=== PATIENT | female | born 1950 | race African-American/Black ===

== ENCOUNTER 2023-07-05 13:40 | Outpatient (AMB) | payer MEDICARE, MEDICAID, SELFPAY ==
--- NOTE | 2023-07-05 13:50 | HO.NEPHOV_ITS ---
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 She has diabetes. Her blood sugar is very fair. She is known to have iliac artery aneurysm. She denies any coronary artery disease, CVA, carotid stenosis, congestive heart failure, peripheral arterial symptoms. She is on angiotensin receptor dione. She denies any orthostatic symptoms. She has no history of hematuria or nephrolithiasis. She does not take any ex cessive nonsteroidal anti-inflammatories. She has been on PPI for a long time. She denies any epistaxis, recurrent sinusitis, hemoptysis, pedal edema. She maintains good hydration. She has no family history of any ESRD or renal transplantation. 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 with negative chest x-ray Gastroesophageal reflux disease without esophagitis Hypercholesteremia Essential (primary) hypertension Sensorineural hearing loss Surgical History (Updated 07/05/23 @ 13:55 by Emily Pop MA) History of hysterectomy Family History (Updated 07/05/23 @ 13:55 by Emily Pop MA) Sister Cancer Diabetes Social History (Updated 07/05/23 @ 13:56 by Emily Pop MA) Alcohol intake: never Patient Tobacco Use Status: Never used Tobacco Physical Exam Vital Signs: Last Vital Signs Pulse 55 07/05/23 13:51 BP 132/80 07/05/23 13:51 Pulse Ox 97 07/05/23 13:51 Oxygen Delivery Method Room Air 07/05/23 13:51 BMI result Body Mass Index 30.3 Const General: comfortable and no acute distress Orientation/consciousness: patient oriented x3 HEENT Head: Yes normocephalic Mouth: Normal oral and palatal mucosa present Eyes EOM: EOMs intact bilaterally Neck Neck: Yes supple Resp Auscultation: clear to auscultation bilaterally Cardio Jugular venous distension: no JVD Rate: regular rate GI Palpation (GI): Soft to palpation Auscultation: normal bowel sounds General: Yes no CVA tenderness Back/Spine/Pelvis Back: no CVA tenderness Skin General skin exam: no rashes or lesions noted Neuro General: patient oriented x3 and moves all extremities Extrem General: Yes no pedal edema Results Reviewed Nephrology Results: No Data to Display Assessment & Plan Assessment & Plan (1) CKD (chronic kidney disease) stage 3, GFR 30-59 ml/min: Code(s): N18.30 - Chronic kidney disease, stage 3 unspecified Category: Medical Qualifiers: Chronic kidney disease stage 3 subtype: stage 3a (GFR 45-59) Qualified Code(s): N18.31 - Chronic kidney disease, stage 3a (2) Hypertension: Code(s): I10 - Essential (primary) hypertension Category: Medical Qualifiers: Hypertension type: renovascular hypertension Qualified Code(s): I15.0 - Renovascular hypertension Plan Sally has CKD most likely due to vascular disease. She has history of iliac artery aneurysm. She has no history of retinopathy or proteinuria. She is on angiotensin receptor dione. Her blood pressure is currently well controlled on losartan, metoprolol and diltiazem. I have ordered Doppler of her renal arteries. Her blood sugars are fair. Her volume status is optimal. She avoids nonsteroidal anti-inflammatory medications. She is on statins. I did not make any medication changes today but further management is pending evolving data. I had the opportunity to answer all her and her daughter's questions. Follow-up appointment given. Orders: Orders Complete Blood Count Auto Diff 07/05/23 I10 - Essential (primary) hypertension, N18.30 - Chronic kidney disease, stage 3 unspecified Immunofixation Pnl, Serum 07/05/23 I10 - Essential (primary) hypertension, N18.30 - Chronic kidney disease, stage 3 unspecified US renal BI 07/05/23 I10 - Essential (primary) hypertension, N18.30 - Chronic kidney disease, stage 3 unspecified US renal doppler 07/05/23 I10 - Essential (primary) hypertension, N18.30 - Chronic kidney disease, stage 3 unspecified Calcium 07/05/23 I10 - Essential (primary) hypertension, N18.30 - Chronic kidney disease, stage 3 unspecified Electrolytes 07/05/23 I10 - Essential (primary) hypertension, N18.30 - Chronic kidney disease, stage 3 unspecified Blood Urea Nitrogen 07/05/23 I10 - Essential (primary) hypertension, N18.30 - Chronic kidney disease, stage 3 unspecified Creatinine 07/05/23 I10 - Essential (primary) hypertension, N18.30 - Chronic kidney disease, stage 3 unspecified Protein Creatinine Ratio, Ur 07/05/23 I10 - Essential (primary) hypertension, N18.30 - Chronic kidney disease, stage 3 unspecified Coding Level of Care Code New Pt Level 4 (21877) Diagnoses Stage 3a chronic kidney disease N18.31 Chronic kidney disease stage 3 subtype: stage 3a (GFR 45-59) Renovascular hypertension I15.0 Hypertension type: renovascular hypertension
[2023-07-05 13:51] VITALS: BP 132/80; PULSE 55; O2SAT 97; BMI 30.3
== END 2023-07-05 14:26 | disposition home or self-care (01) ==
PROVIDERS: PCP Internal Medicine; Visit Provider Internal Medicine Nephrology
DX: N18.31 Chronic kidney disease, stage 3a (principal); I15.0 Renovascular hypertension
CPT/HCPCS: 99204

== ENCOUNTER → 2023-07-05 13:40 | Outpatient (BNVA) | payer MEDICARE, MEDICAID, SELFPAY | PROVIDERS: PCP Internal Medicine; Visit Provider Internal Medicine Nephrology | DX: I15.0 Renovascular hypertension (principal); N18.31 Chronic kidney disease, stage 3a | CPT/HCPCS: 99202 ==

== ENCOUNTER 2023-09-11 08:45 | Outpatient (REF) | payer MEDICARE, MEDICAID, SELFPAY ==
[2023-09-11 17:26] LABS: MANUAL DIFF FLAG NO
[2023-09-11 17:43] LABS: Basophils Percent Auto 0.6 % (0-2); Eosinophils Absolute Auto 0.1 X10*3/uL (0.0-0.4); Eosinophils Percent Auto 3.6 % (0-4); Hematocrit 35.1 % (37.0-47.0); Hemoglobin 11.3 g/dl (12.0-16.0); Imm Gran Abs Auto 0.01 X10*3/uL (0.00-0.03); Imm Gran Pct Auto 0.3 % (0.0-0.4); Lymphocytes Absolute Auto 1.7 X10*3/uL (1.2-4.9); Mean Corpuscular HGB Conc 32.2 g/dl (31.0-35.0); Mean Corpuscular Volume 86.9 fL (80.0-98.0); Mean Platelet Volume 11.1 fL (9.4-12.3); Monocytes Absolute Auto 0.5 X10*3/uL (0.1-1.2); Monocytes Percent Auto 12.5 % (2-11); Neutrophils Absolute Auto 1.3 x10*3/uL (2.0-8.3); Platelet Count 167 X10*3/uL (160-400); Red Blood Count 4.04 X10*6/uL (4.20-5.50); Red Cell Distribution Width 15.2 % (11.0-16.0); White Blood Count 3.6 X10*3/uL (4.8-10.8)
[2023-09-11 17:45] LABS: Anion Gap 11 (12-20); Blood Urea Nitrogen 27 mg/dL (9-16); Calcium 9.7 mg/dL (8.4-10.2); Carbon Dioxide 27 mmol/L (22-29); Chloride 109 mmol/L (96-108); Estimated Glomerular Filt Rate 35; Potassium 4.3 mmol/L (3.3-5.1); Sodium 143 mmol/L (135-145)
[2023-09-11 18:08] LABS: Creatinine Urine 236.98 mg/dL; Protein/Creatinine Ratio, Ur 0.09 (<0.2); Total Protein Urine Random 22 mg/dL (<12)
[2023-09-17 08:23] LABS: IgA 266 mg/dL (70-320); IgG 1533 mg/dL (600-1540); IgM 66 mg/dL (50-300)
== END 2023-09-11 08:46 | disposition home or self-care (01) ==
LOC: HO.HKASLDS 08:45
PROVIDERS: Visit Provider Internal Medicine Nephrology
DX: I12.9 Hypertensive chronic kidney disease with stage 1 through stage 4 chronic kidney disease, or unspecified chronic kidney disease (principal); N18.30 Chronic kidney disease, stage 3 unspecified
CPT/HCPCS: 36415; 80051; 82310; 82565; 82570; 82784; 84156; 84520; 85025; 86334

== ENCOUNTER 2023-09-25 08:48 | Outpatient (REF) | payer MEDICARE, MEDICAID, SELFPAY ==
--- NOTE | ~2023-09-25 | US_ITS ---
EXAMINATION: ULTRASOUND RENAL WITH DOPPLER CLINICAL INFORMATION: Hypertension COMPARISON: None. TECHNIQUE: Real-time grayscale, color Doppler, and duplex Doppler evaluation of the kidneys and renal vasculature was performed. FINDINGS: RENAL MEASUREMENTS: Right: 10.6 x 3.5 x 6.2 cm (Sag x AP x TV) Left: 9.7 x 4.3 x 5.2 cm (Sag x AP x TV) The renal parenchyma appears normal. No hydronephrosis or nephrolithiasis. DOPPLER INTERROGATION: AORTA: Mid aorta: 57 cm/sec RIGHT MAIN RENAL ARTERY: Proximal: 167 cm/sec Mid: 67 cm/sec Distal: 37 cm/sec LEFT MAIN RENAL ARTERY: Proximal: 82 cm/sec Mid: Not seen Distal: 69 cm/sec RENAL-AORTIC RATIO (RAR): Right: 2.9 Left: 1.4 SEGMENTAL RESISTIVE INDICES: Right: 0.63-0.68 Left: 0.63-0.72 RENAL VEINS: Right: Patent with normal waveform. Left: Patent with normal waveform. US/US renal doppler IMPRESSION: The mid segment of the left main renal artery is not visualized. Otherwise no evidence of hemodynamically significant renal artery stenosis.
--- NOTE | ~2023-09-25 | US_ITS ---
EXAMINATION: ULTRASOUND RENAL WITH DOPPLER CLINICAL INFORMATION: Hypertension COMPARISON: None. TECHNIQUE: Real-time grayscale, color Doppler, and duplex Doppler evaluation of the kidneys and renal vasculature was performed. FINDINGS: RENAL MEASUREMENTS: Right: 10.6 x 3.5 x 6.2 cm (Sag x AP x TV) Left: 9.7 x 4.3 x 5.2 cm (Sag x AP x TV) The renal parenchyma appears normal. No hydronephrosis or nephrolithiasis. DOPPLER INTERROGATION: AORTA: Mid aorta: 57 cm/sec RIGHT MAIN RENAL ARTERY: Proximal: 167 cm/sec Mid: 67 cm/sec Distal: 37 cm/sec LEFT MAIN RENAL ARTERY: Proximal: 82 cm/sec Mid: Not seen Distal: 69 cm/sec RENAL-AORTIC RATIO (RAR): Right: 2.9 Left: 1.4 SEGMENTAL RESISTIVE INDICES: Right: 0.63-0.68 Left: 0.63-0.72 RENAL VEINS: Right: Patent with normal waveform. Left: Patent with normal waveform. US/US renal BI IMPRESSION: The mid segment of the left main renal artery is not visualized. Otherwise no evidence of hemodynamically significant renal artery stenosis.
== END 2023-09-25 08:49 | disposition home or self-care (01) ==
LOC: HO.US 08:48
PROVIDERS: PCP Internal Medicine; Visit Provider Internal Medicine Nephrology
DX: I10 Essential (primary) hypertension (principal); N18.30 Chronic kidney disease, stage 3 unspecified
CPT/HCPCS: 76775; 93975

== ENCOUNTER 2024-01-03 09:07 | Outpatient (REF) | payer MEDICARE, MEDICAID, SELFPAY ==
[2024-01-03 18:03] LABS: Anion Gap 12 (12-20); Blood Urea Nitrogen 25 mg/dL (9-16); Carbon Dioxide 27 mmol/L (22-29); Chloride 109 mmol/L (96-108); Estimated Glomerular Filt Rate 47; Potassium 4.5 mmol/L (3.3-5.1); Sodium 143 mmol/L (135-145)
[2024-01-03 18:21] LABS: Creatinine Urine 151.46 mg/dL; Protein/Creatinine Ratio, Ur 0.07 (<0.2); Total Protein Urine Random 10 mg/dL (<12)
== END 2024-01-03 09:08 | disposition home or self-care (01) ==
LOC: HO.HKASLDS 09:07
PROVIDERS: Visit Provider Internal Medicine Nephrology
DX: N18.31 Chronic kidney disease, stage 3a (principal); I15.0 Renovascular hypertension
CPT/HCPCS: 36415; 80051; 82565; 82570; 84156; 84520

== ENCOUNTER 2024-01-08 09:55 | Outpatient (AMB) | payer MEDICARE, MEDICAID, SELFPAY ==
--- NOTE | 2024-01-08 09:59 | HO.NEPHOV ---
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 She has diabetes. Her blood sugar is very fair. She is known to have iliac artery aneurysm. She denies any coronary artery disease, CVA, carotid stenosis, congestive heart failure, peripheral arterial symptoms. She is on angiotensin receptor dione. She denies any orthostatic symptoms. She has no history of hematuria or nephrolithiasis. She does not take any excessive nonsteroidal anti-inflammatories. She has been on PPI for a long time. She denies any epistaxis, recurrent sinusitis, hemoptysis, pedal edema. She maintains good hydration. 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 chest x-ray Gastroesophageal reflux disease without esophagitis Hypercholesteremia Essential (primary) hypertension Sensorineural hearing loss Surgical History History of hysterectomy Family History Sister Cancer Diabetes Social History Alcohol intake: never Patient Tobacco Use Status: Never used Tobacco Review of Systems Const All systems reviewed & are unremarkable except as noted in HPI and below Physical Exam Vital Signs: Last Vital Signs BP 122/70 01/08/24 10:00 BMI result Body Mass Index 29.7 Const General: comfortable and no acute distress Orientation/consciousness: patient oriented x3 HEENT Head: Yes normocephalic Mouth: Normal oral and palatal mucosa present Eyes EOM: EOMs intact bilaterally Neck Neck: Yes supple Resp Auscultation: clear to auscultation bilaterally Cardio Jugular venous distension: no JVD Rate: regular rate GI Palpation (GI): Soft to palpation Auscultation: normal bowel sounds General: Yes no CVA tenderness Back/Spine/Pelvis Back: no CVA tenderness Skin General skin exam: no rashes or lesions noted Neuro General: patient oriented x3 and moves all extremities Extrem General: Yes no pedal edema Results Reviewed Nephrology Results: Hgb 11.3 g/dl (12.0-16.0) L 09/11/23 WBC 3.6 X10*3/uL (4.8-10.8) L 09/11/23 Plt Count 167 X10*3/uL (160-400) 09/11/23 Sodium 143 mmol/L (135-145) 01/03/24 Potassium 4.5 mmol/L (3.3-5.1) 01/03/24 Chloride 109 mmol/L (96-108) H 01/03/24 Carbon Dioxide 27 mmol/L (22-29) 01/03/24 BUN 25 mg/dL (9-16) H 01/03/24 Creatinine 1.13 mg/dL (0.5-1.4) 01/03/24 Calcium 9.7 mg/dL (8.4-10.2) 09/11/23 Urine Creatinine 151.46 mg/dL 01/03/24 Protein/Creatinin Ratio 0.07 (<0.2) 01/03/24 Renal US 09/25/23 Assessment & Plan Assessment & Plan (1) CKD (chronic kidney disease) stage 3, GFR 30-59 ml/min: Code(s): N18.30 - Chronic kidney disease, stage 3 unspecified Category: Medical Qualifiers: Chronic kidney disease stage 3 subtype: stage 3a (GFR 45-59) Qualified Code(s): N18.31 - Chronic kidney disease, stage 3a (2) Hypertension: Code(s): I10 - Essential (primary) hypertension Category: Medical Qualifiers: Hypertension type: renovascular hypertension Qualified Code(s): I15.0 - Renovascular hypertension Plan Sally has CKD most likely due to vascular disease. She has history of iliac artery aneurysm. She has no history of retinopathy or proteinuria. She is on angiotensin receptor dione. Her blood pressure is currently well controlled on losartan, metoprolol and diltiazem. Doppler of her renal arteries did not show any significant SONY. Her blood sugars are fair. Her volume status is optimal. She avoids nonsteroidal anti-inflammatory medications. She is on statins. I did not make any medication changes today . We can consider switching her from Actos to Jardiance given her CKD. Follow-up appointment given. Orders: Orders Electrolytes 6 Months I15.0 - Renovascular hypertension, N18.31 - Chronic kidney disease, stage 3a Creatinine 6 Months I15.0 - Renovascular hypertension, N18.31 - Chronic kidney disease, stage 3a Blood Urea Nitrogen 6 Months I15.0 - Renovascular hypertension, N18.31 - Chronic kidney disease, stage 3a Coding Level of Care Code Est Pt Level 4 (99173) Diagnoses Stage 3a chronic kidney disease N18.31 Chronic kidney disease stage 3 subtype: stage 3a (GFR 45-59) Renovascular hypertension I15.0 Hypertension type: renovascular hypertension
[2024-01-08 10:00] VITALS: BP 122/70; BMI 29.7
== END 2024-01-08 10:11 | disposition home or self-care (01) ==
PROVIDERS: PCP Internal Medicine; Visit Provider Internal Medicine Nephrology
DX: I12.9 Hypertensive chronic kidney disease with stage 1 through stage 4 chronic kidney disease, or unspecified chronic kidney disease (principal); N18.31 Chronic kidney disease, stage 3a
CPT/HCPCS: 99214

== ENCOUNTER → 2024-01-08 09:55 | Outpatient (BNVA) | payer MEDICARE, SELFPAY | PROVIDERS: PCP Internal Medicine; Visit Provider Internal Medicine Nephrology | DX: I15.0 Renovascular hypertension (principal); N18.30 Chronic kidney disease, stage 3 unspecified | CPT/HCPCS: 99212 ==

== ENCOUNTER 2024-07-08 10:00 | Outpatient (REF) | payer MEDICARE, MEDICAID, SELFPAY ==
--- OUTSIDE RECORDS SUMMARY | 2024-07-08 10:51 | XMS_ITS | Clinical Summary ---
Author Organization [facility] Address [address] [place] [address] Care Team Providers Care Speech Language Pathologist Travel Name Role Phone Nasim Ann MD Primary Care Provider Immunizations Name Administration Dates Next Due Moderna SARS-CoV-2 COVID-19, mRNA, LNP-S, preservative free 02/09/2021,05/08/2020,04/10/2020 Surgical History Surgery Date Site/Laterality Comments OOPHORECTOMY 1991 PROCEDURE: HISTORICAL OOPHORECTOMY; COMMENT: bilateral COLONOSCOPY 03/14/2012 PROCEDURE: HISTORICAL COLONOSCOPY; COMMENT: tubular adenoma. 5 yr repeat HYSTERECTOMY PROCEDURE: HISTORICAL HYSTERECTOMY Medical History Medical History Date Comments Hypertension DX:Hypertension Heart murmur DX:Heart murmur GERD (gastroesophageal reflux disease) DX:GERD (gastroesophageal reflux disease) Hearing impairment DX:Hearing im pairment; COMMENT: since Vitamin D deficiency 06/02/2016 DX:Vitamin D deficiency Tubular adenoma of colon 06/02/2016 DX:Tubu lar adenoma of colon; COMMENT: CN 03/14/12. [address] Alvarez Abnormal mammogram 06/02/2016 DX:Abnormal m ammogram; COMMENT: L breast. 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) Family History Medical History Relation Name Comments Coronary artery disease Father Stra bismus Diabetes Mother HTN Breast cancer Sister 1 Relation Name Status Comments Brother 1 Alive Brother 2 Alive Brother 3 Alive Brother 4 Alive Brother 5 Alive Brother 6 Alive Brother 7 Alive Brother 8 gunshot wound Daughter 1 Alive Daughter 2 Alive Daughter 3 Alive Daughter 4 Alive Father (Age 94) Mother (Age 91) Sister 1 Sister 2 Alive Sister 3 Alive breast cancer Sister 4 Alive Sister 5 Alive Sister 6 Alive Social History Tobacco Use Types Packs/Day Years Used Date Smoking Tobacco: Never Smokeless Tobacco: Never Alcohol Use Standard Drinks/Week Comments No 0 (1 standard drink = 0.6 oz pur e alcohol) Comments Unknown Sex and Gender Information Value Date Recorded Sex Assigned at Not on file Legal Sex Female 2:37 PM EST Gender Identity Not on file Sexual Orientation Not on file Obstetrics History Last Filed Vital Signs Vital Sign Reading Time Taken Comments Blood Pressure 120/78 05/10/2022 11:40 AM EDT Sitting L Arm Pulse 76 05/10/2022 11:40 AM EDT Temperature - - Respiratory Rate - - Oxygen Saturation - - Inhaled Oxygen Concentration - - Weight 76.6 kg (168 lb 12.8 oz) 05/10/2022 11:40 AM EDT Height 160 cm (5' 3 ) 05/10/2022 11:40 AM EDT Body Mass Index 29.9 05/10/2022 11:40 AM EDT Plan of Treatment Health Maintenance Due Date Last Done Comments Breast Cancer Screening 1950 Pneumococcal Vaccine: 50+ Years (1 of 1 - PCV) 2002 Zoster Vaccines (1 of 2) 2002 Cholesterol Screening (Lipid Panel) 01/25/2022 Colorectal Cancer Screening: Colonoscopy 01/25/2022 Depression Screening 01/25/2022 Falls Risk Assessment 01/25/2022 Hepatitis C Screening 01/25/2022 Osteoporosis Screening (Bone Density Screening) 01/25/2022 Social Influencers of Health Screening 01/25/2022 Hypertension/CHF/CAD Annual BMP Blood Test 02/08/2022 COVID-19 Vaccine (4 - 2023-2 5 season) 2023 02/09/2021, 05/08/2020, 04/10/2020 DTaP,Tdap,and Td Vaccines (2 - Td or Tdap) 08/20/2024 08/20/2014 Influenza Vaccine (Season Ended) 2024 11/21/2011 RSV Immunization Adult Patients (1 - 1-dose 75+ series) 09/21/2027 HIB Vaccines Aged Out No longer eligi ble based on patient's age to complete this topic HPV Vaccines Aged Out No longer eligi ble based on patient's age to complete this topic Hepatitis A Vaccines Aged Out No long er eligible based on patient's age to complete this topic Hepatitis B Vaccines Aged Out No long er eligible based on patient's age to complete this topic IPV Vaccines Aged Out No longer eligi ble based on patient's age to complete this topic MMR Vaccines Aged Out No longer eligi ble based on patient's age to complete this topic Meningococcal ACWY Vaccine Aged Out N o longer eligible based on patient's age to complete this topic Meningococcal B Vaccine Aged Out No l onger eligible based on patient's age to complete this topic RSV Immunization Patients Under 20 months Aged Out No longer eligible b ased on patient's age to complete this topic Varicella Vaccines Aged Out No longer eligible based on patient's age to complete this topic Care Teams Speech Language Pathologist Travel Relationship Specialty Start Date End Date Nasim Ann MD [address] [place] [address] PCP - General 01/24/22
--- OUTSIDE RECORDS SUMMARY | 2024-07-08 10:52 | XMS_ITS | Clinical Summary ---
Author Organization [facility] Address [address] [place] [address] Care Team Providers Care Asbestos Cloth Inspector Name Role Phone Nasim Ann MD Primary Care Provider [phone] Source Comments PLEASE NOTE, if this patient is a minor, it may be UNLAWFUL to discuss sensitive information that is contained in these records (such as FAMILY PLANNING, MENTAL HEALTH or SUBSTANCE ABUSE) with the minor patient's parent or other person without the patient's specific authorization.[facility] Allergies Active Allergy Reactions Criticality Noted Date Comments Aspirin 05/04/2016 Medications dorzolamide (TRUSOPT) 2 % ophthalmic solution INSTILL 1 DROP IN BOTH EYES THREE TIMES DAILY 02/05/20 20 Active ketorolac (ACULAR) 0.5 % ophthalmic solution 03/08/19 21 Active latanoprost (XALATAN) 0.005 % ophthalmic solution INSTILL 1 DROP EVERY NIGHT AT BEDTIME INTO RIGHT EYE 02/13/20 21 Active albuterol HFA 90 mcg/actuation inhaler Inhale 2 Puffs into the lungs every 4 to 6 (four to six) hours as needed for wheezing 18 g 04/28/19 23 Active acetaminophen (TYLENOL) 500 mg tabletIndication s:Pilonidal cyst Take 1 Tablet by mouth every 6 (six) hours as needed for pain 60 Tablet 08/24/19 23 Active loratadine (CLARITIN) 10 mg tabletIndication s:Seasonal allergies Take 1 Tablet by mouth daily. NEEDED FOR ALLERGIES!! 90 Tablet 1 02/04/20 24 Active omeprazole (PRILOSEC) [address] capsuleCarson ns:Right upper quadrant pain TAKE 1 CAPSULE BY MOUTH EVERY MORNING BEFORE BREAKFAST 90 Capsule 1 03/16/19 25 Active pioglitazone (ACTOS) 30 mg tabletIndication s:Type 2 diabetes mellitus without complication, without long-term current use of insulin ([facility]) Take 1 Tablet by mouth once daily 90 Tablet 2 04/17/19 25 Active atorvastatin (LIPITOR) 40 mg tabletIndication s:Hypercholester olemia Take 1 Tablet by mouth once daily 90 Tablet 1 04/17/19 25 Active dilTIAZem CD (CARDIZEM CD) 120 mg 24 hr capsuleIndicatio ns:Essential hypertension Take 1 Capsule by mouth once daily 90 Capsule 1 04/17/19 25 Active losartan (COZAAR) 25 mg tabletIndication s:Essential hypertension Take 1 Tablet by mouth once daily 90 Tablet 1 04/17/19 25 Active metoprolol succinate (TOPROL-XL) 200 mg 24 hr tabletIndication s:Essential hypertension Take 1 Tablet by mouth once daily 90 Tablet 1 04/17/19 25 Active FARXIGA 10 mg tabIndications:T ype 2 diabetes mellitus without complication, without long-term current use of insulin ([facility]) TAKE 1 TABLET BY MOUTH EVERY MORNING 90 Tablet 1 06/20/19 25 Active dapagliflozin propanediol (FARXIGA) 10 mg tabIndications:T ype 2 diabetes mellitus without complication, without long-term current use of insulin ([facility]) Take 1 Tablet by mouth every morning 90 Tablet 1 04/17/19 25 025 Discontinued Active Problems Problem Noted Date Diagnosed Date Iliac artery aneurysm ([facility]) 08/23/2022 Overview (03/02/2023): Sees Vascular Surgeon CT of abdomen and pelvis done at [facility] 07/26/22 Left Common iliac artery and bilateral iliac artery aneurysn with significant luminal aneurysm Stage 3a chronic kidney disease ([facility]) 2020 Overview (06/07/2023): Referred to Nephrology Type 2 diabetes mellitus without complication ([facility]) 04/28/2020 Hearing impairment 12/30/2019 Overview (12/30/2019): Overview: since Seasonal allergies 05/22/2019 Gastroesophageal reflux disease without esophagi tis 11/16/2017 Hypercholesterolemia 06/06/2017 Essential hypertension 12/01/2016 Sensorineural hearing loss (SNHL) of both ears 0 10/31/2016 Overview (10/31/2016): SEEN at [facility]- consider hybrid cochlear implant if no success with hearing aids advised 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 [address] Alvarez Vitamin D deficiency 06/02/2016 Hypertrophic obstructive cardiomyopathy ([facility] ) 06/02/2016 Overview (05/30/2022): Sees Cardiology Overview: ECHO 11/09/11 Sales Account Executive - Dr Cerrato Encounters Date Type Department Care Team Description 05/12/2024 Interim Notes [facility] [address] [place] [phone] Nasim Ann MD Abnormal mammogram of left breast (Primary Dx) 04/17/2024 11:20 AM EST Office Visit [facility] [address] [place] [phone] Nasim Ann MD Essential hypertension (Primary Dx); Hypercholesterolemia; Type 2 diabetes mellitus without complication, without long-term current use of insulin ([facility]); Stage 3a chronic kidney disease ([facility]) from Last 3 Months Immunizations Immunization Administration Dates Next Due Flu, High Dose, 65y+, Fluzone High Dose 03/02/19 24,02/01/2022 Flu, Preservative Free 03/08/2017 INFLUENZA, SEASONAL, INJECTABLE 11/11/2014,11/20 Moderna COVID-19 Vaccine, re d cap blue label, 12+ Primary Series 02/09/2021,05/08/2020,04/10/2020 TDAP 08/20/2014 ZOSTER VACCINE, RECOMBINANT (SHINGRIX) 4,08/23/2022 Family History Relation Name Status Comments Brother Alive Father Mother Sister Alive Social History Tobacco Use Types Packs/Day Years Used Date Smoking Tobacco: Never Passive Smoke Exposure: Never Smokeless Tobacco: Never Tobacco Cessation:Counseling Given: Yes Alcohol Use Standard Drinks/Week Comments No 0 (1 standard drink = 0.6 oz pur e alcohol) Social Connections Answer Date Recorded Connectedness 0 10/31/2023 Financial Resource Strain Answer Date R ecorded Financial Resource Strain 0 2018 Stress Answer Date Recorded Stress 0 10/20/2018 Physical Activity Answer Date Recorded Physical Activity 0 10/20/2018 Food Insecurity Answer Date Recorded Food 0 11/22/2023 Transportation Needs Answer Date Record ed Transportation 0 10/20/2018 Housing Stability Answer Date Recorded Housing 0 10/20/2018 Safety and Environment Answer Date Delonte rded Safety 0 09/14/2020 Utilities Answer Date Recorded Utilities 0 10/20/2018 Employment Answer Date Recorded Stress 0 05/16/2021 Comments No Sex and Gender Information Value Date Recorded Sex Assigned at Female 09/25/2016 12:52 PM PDT Legal Sex Female 9:27 AM PDT Gender Identity Female 09/25/2016 12:52 PM PDT Sexual Orientation Straight 09/25/2016 12 :52 PM PDT Last Filed Vital Signs Vital Sign Reading Time Taken Comments Blood Pressure 160/100 04/17/2024 11:04 AM EST Pulse 86 04/17/2024 11:04 AM EST Temperature 36.7 ??C (98.1 ??F) 04/17/2024 11:[address] Respiratory Rate 16 04/17/2024 11:04 AM EST Oxygen Saturation 97% 04/17/2024 11:04 AM EST Inhaled Oxygen Concentration - - Weight 76 kg (167 lb 9.6 oz) 04/17/2024 11:04 AM EST Height 162.6 cm (5' 4 ) 04/17/2024 11:04 AM EST Body Mass Index 28.77 04/17/2024 11:04 AM EST Plan of Treatment Health Maintenance Due Date Last Done Comments CT Colonography 1997 Colonoscopy 1997 Fecal DNA 1997 Flexible Sigmoidoscopy 1997 Dental Prophy 08/19/2023 02/15/2023, 08/25/2022 FIT/gFOBT 08/30/2023 08/29/2022, 06/0 02/2021, 07/27/2021, Additional history exists Dental BW 02/18/2024 02/15/2023, 08/25/2022 Dental Examination 02/18/2024 02/15/2023, 08/25/2022 Dental Perio Charting 02/18/2024 02/15/2023 Alcohol and Drug Screen 02/27/2024 03/02/19 24, 05/19/2022, 07/21/2021, Additional history exists Imm-DTaP/Tdap/Td (2 - Td or Tdap) 08/20/2024 015 Diabetes Foot Exam 09/05/2024 09/06/2023, 0 08/23/2022, 07/21/2021, Additional history exists Falls Prevention 09/05/2024 09/06/2023, , 07/21/2021, Additional history exists Lipid Screening 09/05/2024 09/06/2023, 08/27, 04/12/2021, Additional history exists Medicare Annual Wellness Visit 09/05/2024 0 09/06/2023, 10/02/2018, 09/25/2016 Serum Creatinine 09/05/2024 09/06/2023, 12/2023, 05/22/2022, Additional history exists Urine Albumin Creatinine Rat io Screening 09/05/2024 09/06/2023 Diabetes HbA1c 10/15/2024 04/17/2024, 08/26, 05/22/2022, Additional history exists Retinopathy Screening 10/31/2024 11/01/2023 , 04/17/2023, 2021 (Managed by Outside Provider) Tobacco Screening 04/17/2025 04/17/2024 Breast Cancer Screening (Mammogram) 05/14/2026 05/14/2024, 11/14/2023, 10/30/2023, Additional history exists Dental FMX/Pano 08/28/2027 08/25/2022 Hepatitis C Screening Completed 10/03/2018 Bone Density Screening Completed 10/25/2018 [id number] Discontinued 02/09/2021, 04/26, 04/10/2020 Imm-Influenza Discontinued 03/02/2023, 12/0 08/2021, 03/08/2017, Additional history exists Imm-Zoster, Recombinant Completed 06/07/2023, 08/23 Depression Annual Screen Completed 025, 03/02/2023, 01/14/2020, Additional history exists Colorectal Cancer Screening Discontinued Imm-Pneumococcal 65+ Discontinued Procedures Procedure Name Priority Date/Time Associated Diagnosis Comments OTHER ORDERS SCANNED DOCUMENT 05/20/2024 3:00 AM EDT HISTORIC MAMMOGRAM 05/14/2024 3: 00 AM EDT HEMOGLOBIN GLYCOSYLATED A1C Routine 04/17/2024 11:25 AM EST Type 2 diabetes mellitus without complication, without long-term current use of insulin ([facility]) EYE EXAM 11/01/2023 3:00 AM EDT COMPREHENSIVE METABOLIC PANEL Routine 09/06/2023 9:39 AM EDT Routine general medical examination at a health care facility Essential hypertension Hypercholesterolemia Type 2 diabetes mellitus without complication, without long-term current use of insulin ([facility]) Stage 3a chronic kidney disease ([facility]) Hypertrophic obstructive cardiomyopathy ([facility]) LIPID PANEL Routine 09/06/2023 9:39 AM EDT Routine general medical examination at a [facility] care facility Essential hypertension Hypercholesterolemia Type 2 diabetes mellitus without complication, without long-term current use of insulin ([facility]) MICROALBUMIN/CREATININ E RATIO, URINE, RANDOM Routine 09/06/2023 9:39 AM EDT Routine general medical examination at a health care facility Type 2 diabetes mellitus without complication, without long-term current use of insulin ([facility]) Health care maintenance BITEWINGS - FOUR RADIOGRAPHIC IMAGES Routine 02/15/2023 10:20 AM EST Caries of enamel (incipient) PROPHYLAXIS - ADULT Routine 02/15/2023 1 0:20 AM EST Caries of enamel (incipient) PERIODIC ORAL EVALUATION ESTABLISHED PATIENT Routine 02/15/2023 10:20 AM EST Caries of enamel (incipient) FECAL GLOBIN BY IMMUNOCHEMISTRY (FIT) Routine 08/29/2022 8:00 PM EDT INTRAORAL - COMP SERIES OF RADIOGRAPHIC IMAGES Routine 08/25/2022 3:00 PM EDT Caries of enamel (incipient) Caries HEPATITIS C ANTIBODY Routine 10/03/2018 11:23 AM EDT Health care maintenance from Last 3 Months or Most Recently Relevant to Health Maintenance Results * OTHER ORDERS SCANNED DOCUMENT (05/20/2024 3:00 AM EDT) 05/20/2024 3:00 AM EDT us Nasim Ann MD SCAN OTHER ORDERS Final Result * HISTORIC MAMMOGRAM (05/14/2024 3:00 AM EDT) 05/14/2024 3:00 AM EDT us Nasim Ann MD IMG MAMMO Final Result * (ABNORMAL) HEMOGLOBIN GLYCOSYLATED A1C (04/17/2024 11:25 AM EST) HEMOGLOBIN A1C 6.4(H) <5.7 % of total Hgb [facility] Comment: For someone without known diabetes, a hemoglobin A1c value between 5.7% and 6.4% is consistent with prediabetes and should be confirmed with a follow-up test. For someone with known diabetes, a value <7% indicates that their diabetes is well controlled. A1c targets should be individualized based on duration of diabetes, age, comorbid conditions, and other considerations. This assay result is consistent with an increased risk of diabetes. Currently, no consensus exists regarding use of hemoglobin A1c for diagnosis of diabetes for children. Blood Blood / Unknown 04/17/2024 1 1:25 AM EST 04/19/2024 3:48 AM EST Narrative [facility] - 04/19/2024 10:03 AM EST FASTING:YES us Nasim Ann MD LAB - BLOOD DRAW Final Result [facility] [address] [address], [facility] [address] [place] [address] * EYE EXAM (11/01/2023 3:00 AM EDT) 11/01/2023 3:00 AM EDT Nasim Ann MD OTHER Edited Result - Final * (ABNORMAL) MICROALBUMIN/CREATININE RATIO, URINE, RANDOM (09/06/2023 9:39 AM EDT) CREATININE, RANDOM URINE 399(H) 20 - 275 mg/dL [facility] Comment: Verified by repeat analysis. MICROALBUMIN 2.6 mg/dL [facility] Comment: Reference Range Not established MICROALBUMIN/CREA TININE RATIO, RANDOM URINE 7 <30 mg/g creat [facility] Comment: The ADA defines abnormalities in albumin excretion as follows: Albuminuria Category ?Result (mg/g creatinine) Normal to Mildly increased ?? <30 Moderately increased ? 30-299 Severely increased ? > OR = 300 The ADA recommends that at least two of three specimens collected within a 3-6 month period be abnormal before considering a patient to be within a diagnostic category. Urine Urine specimen / Unknown 09/06/2023 9:39 AM EDT 09/06/2023 9:40 AM EDT Nasim Ann MD LAB - NO BLOOD DRAW Final Resul t [facility] [address] [address], [facility] [address] [place] [address] * (ABNORMAL) LIPID PANEL (09/06/2023 9:39 AM EDT) CHOLESTEROL, TOTAL 153 <200 mg/dL [facility] HDL CHOLESTEROL 44(L) > OR = 50 mg/dL [employer] TRIGLYCERIDES 79 <150 mg/dL [employer] LDL-CHOLESTEROL 92 99 mg/dL (calc) [employer] Comment: Reference range: <100 Desirable range <100 mg/dL for primary prevention; ?? <70 mg/dL for patients with CHD or diabetic patients with > or = 2 CHD risk factors. LDL-C is now calculated using the Bassam calculation, which is a validated novel method providing better accuracy than the Friedewald equation in the estimation of LDL-C. Zach SS et al. RODERICK. 2013;310(42): 5805-7580 (http://education.[facility]/faq/URW359) CHOL/HDLC RATIO 3.5 <5.0 (calc) [employer] NON-HDL CHOLESTEROL 109 <130 mg/dL (calc) [employer] Comment: For patients with diabetes plus 1 major ASCVD risk factor, treating to a non-HDL-C goal of <100 mg/dL (LDL-C of <70 mg/dL) is considered a therapeutic option. Blood Blood / Unknown 09/06/2023 9 :39 AM EDT 09/06/2023 9:40 AM EDT Nasim Ann MD LAB - BLOOD DRAW Final Result [facility] [address] [place] [id number], [employer] [address] [place] [phone] * (ABNORMAL) COMPREHENSIVE METABOLIC PANEL (09/06/2023 9:39 AM EDT) GLUCOSE 100(H) 65 - 99 mg/dL [employer] Comment: ?Fasting reference interval For someone without known diabetes, a glucose value between 100 and 125 mg/dL is consistent with prediabetes and should be confirmed with a follow-up test. UREA NITROGEN (BUN) 22 7 - 25 mg/dL [employer] CREATININE (blood) 1.35(H) 0.60 - 1.00 mg/dL [employer] EGFR 42(L) > OR = 60 mL/min/1. 73m2 [employer] BUN/CREATININE RATIO 16 6 - 22 (calc) [facility] SODIUM 140 135 - 146 mmol/L [facility] POTASSIUM 4.0 3.5 - 5.3 mmol/L [facility] CHLORIDE 106 98 - 110 mmol/L [facility] CARBON DIOXIDE 31 20 - 32 mmol/L [facility] CALCIUM 9.4 8.6 - 10.4 mg/dL [facility] PROTEIN, TOTAL 7.3 6.1 - 8.1 g/dL [facility] ALBUMIN 3.9 3.6 - 5.1 g/dL [facility] GLOBULIN 3.4 1.9 - 3.7 g/dL (calc) [facility] ALBUMIN/GLOBULI N RATIO 1.1 1.0 - 2.5 (calc) [facility] BILIRUBIN, TOTAL 0.9 0.2 - 1.2 mg/dL [facility] ALKALINE PHOSPHATASE 65 37 - 153 U/L [facility] AST 13 10 - 35 U/L [facility] ALT 18 6 - 29 U/L [facility] Blood Blood / Unknown 09/06/2023 9 :39 AM EDT 09/06/2023 9:40 AM EDT Nasim Ann MD LAB - BLOOD DRAW Edited Result - Final [facility] [address] [address], [facility] [address] [address] * FECAL GLOBIN BY IMMUNOCHEMISTRY (FIT) (08/29/2022 8:00 PM EDT) FECAL GLOBIN BY IMMUNOCHEMISTRY See Note [facility] Comment: ??FECAL GLOBIN BY IMMUNOCHEMISTRY ?Micro Number: ?[id number] ??Test Status: ? Final ??Specimen Source: ?? Insure (tm) fobt test card ??Specimen Quality: ??Adequate ??Fecal Globin: ?Not Detected 08/29/2022 8:00 PM EDT 09/04/2022 1:50 PM EDT Nasim Ann MD LAB - NO BLOOD DRAW Final Resul t [facility] [address] [address], [place] [facility] [address] [place] [address] * HEPATITIS C ANTIBODY (10/03/2018 11:23 AM EDT) HEPATITIS C VIRUS SCREEN NEGATIVE NEGATIVE [facility] Blood specimen (specimen) Blood / Unknown 10/03/2018 11:23 AM EDT 10/03/2018 11:30 AM EDT Narrative [facility] - 10/03/2018 8:42 PM EDT [employer], [place] [address] Filler Operator - Cristy Corley MD PT ID [id number] ORD# [id number] Nasim Ann MD LAB - BLOOD DRAW Final Result Performing Organization Address City/[facility]/ZIP Co de Phone Number [facility] [employer] [address], from Last 3 Months or Most Recently Relevant to Health Maintenance Insurance [employer] NET DENTAL DENTAL MEDICARE - [place] MEDICAID Care Teams Asbestos Cloth Inspector Relationship Specialty Start Date End Date Nasim Ann MD [address] [place] [phone] PCP - General Internal Medicine 02/28/17
[2024-07-08 18:27] LABS: Anion Gap 12 (12-20); Blood Urea Nitrogen 23 mg/dL (9-16); Carbon Dioxide 28 mmol/L (22-29); Chloride 108 mmol/L (96-108); Estimated Glomerular Filt Rate 42; Potassium 4.9 mmol/L (3.3-5.1); Sodium 143 mmol/L (135-145)
== END 2024-07-08 10:01 | disposition home or self-care (01) ==
LOC: HO.HKASLDS 10:00
PROVIDERS: Visit Provider Internal Medicine Nephrology
DX: N18.31 Chronic kidney disease, stage 3a (principal); I15.0 Renovascular hypertension
CPT/HCPCS: 36415; 80051; 82565; 84520

== ENCOUNTER 2024-07-24 13:15 | Outpatient (AMB) | payer MEDICARE, MEDICAID, SELFPAY ==
--- NOTE | 2024-07-24 13:41 | HO.NEPHOV ---
Vital Signs 07/24/24 13:43 Height 5 ft 4 in Weight 168 lb 2 oz BMI 28.9 BP 110/70 Blood Pressure Location Lt brachial Position Sitting Intake Visit Reasons: follow up CKD STG3-LVM Scheduling Assistant Required: No Accompanied by: Self / Same As Patient Allergies No Known Allergies Allergy (Verified 07/24/24 13:43) HPI Comments Details: Sally was seen in follow up for her chronic kidney disease and hypertension. She has diabetes. Her blood sugar is very fair. She is known to have iliac artery aneurysm. She denies any coronary artery disease, CVA, carotid stenosis, congestive heart failure, peripheral arterial symptoms. She is on angiotensin receptor dione. She denies any orthostatic symptoms. She has no history of hematuria or nephrolithiasis. She does not take any excessive nonsteroidal anti-inflammatories. She has been on PPI for a long time. She denies any epistaxis, recurrent sinusitis, hemoptysis, pedal edema. She maintains good hydration. 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-ray Gastroesophageal reflux disease without esophagitis Hypercholesteremia Essential (primary) hypertension Sensorineural hearing loss Surgical History History of hysterectomy Family History Sister Cancer Diabetes Social History Alcohol intake: never Patient Tobacco Use Status: Never used Tobacco Review of Systems Const All systems reviewed & are unremarkable except as noted in HPI and below Physical Exam Vital Signs: Last Vital Signs BP 110/70 07/24/24 13:43 BMI result Body Mass Index 28.9 Const General: comfortable and no acute distress Orientation/consciousness: patient oriented x3 HEENT Head: Yes normocephalic Mouth: Normal oral and palatal mucosa present Eyes EOM: EOMs intact bilaterally Neck Neck: Yes supple Resp Auscultation: clear to auscultation bilaterally Cardio Jugular venous distension: no JVD Rate: regular rate GI Palpation (GI): Soft to palpation Auscultation: normal bowel sounds General: Yes no CVA tenderness Back/Spine/Pelvis Back: no CVA tenderness Skin General skin exam: no rashes or lesions noted Neuro General: patient oriented x3 and moves all extremities Extrem General: Yes no pedal edema Assessment & Plan Assessment & Plan (1) CKD (chronic kidney disease) stage 3, GFR 30-59 ml/min: Code(s): N18.30 - Chronic kidney disease, stage 3 unspecified Category: Medical Qualifiers: Chronic kidney disease stage 3 subtype: stage 3a (GFR 45-59) Qualified Code(s): N18.31 - Chronic kidney disease, stage 3a (2) Hypertension: Code(s): I10 - Essential (primary) hypertension Category: Medical Qualifiers: Hypertension type: renovascular hypertension Qualified Code(s): I15.0 - Renovascular hypertension Plan Sally has CKD most likely due to vascular disease. She has history of iliac artery aneurysm. She has no history of retinopathy or proteinuria. She is on angiotensin receptor dione. Her blood pressure is currently well controlled on losartan, metoprolol and diltiazem. Doppler of her renal arteries did not show any significant SONY. Her blood sugars are fair. Her volume status is optimal. She avoids nonsteroidal anti-inflammatory medications. She is on statins. Her renal function is stable. I did not make any medication changes today . We can consider switching her from Actos to Jardiance given her CKD. Follow-up appointment given. Orders: Orders Electrolytes 6 Months I15.0 - Renovascular hypertension, N18.31 - Chronic kidney disease, stage 3a Creatinine 6 Months I15.0 - Renovascular hypertension, N18.31 - Chronic kidney disease, stage 3a Blood Urea Nitrogen 6 Months I15.0 - Renovascular hypertension, N18.31 - Chronic kidney disease, stage 3a Coding Level of Care Code Est Pt Level 4 (84697) Diagnoses Stage 3a chronic kidney disease N18.31 Chronic kidney disease stage 3 subtype: stage 3a (GFR 45-59) Renovascular hypertension I15.0 Hypertension type: renovascular hypertension
[2024-07-24 13:43] VITALS: BP 110/70; BMI 28.9
== END 2024-07-24 13:59 | disposition home or self-care (01) ==
LOC: HO.HKAS 13:16
PROVIDERS: PCP Internal Medicine; Visit Provider Internal Medicine Nephrology
DX: I12.9 Hypertensive chronic kidney disease with stage 1 through stage 4 chronic kidney disease, or unspecified chronic kidney disease (principal); N18.31 Chronic kidney disease, stage 3a
CPT/HCPCS: 99214

== ENCOUNTER → 2024-07-24 13:15 | Outpatient (BNVA) | payer MEDICARE, SELFPAY | PROVIDERS: PCP Internal Medicine; Visit Provider Internal Medicine Nephrology | DX: I12.9 Hypertensive chronic kidney disease with stage 1 through stage 4 chronic kidney disease, or unspecified chronic kidney disease (principal); N18.31 Chronic kidney disease, stage 3a; I15.0 Renovascular hypertension | CPT/HCPCS: 99212 ==

== ENCOUNTER 2025-01-13 10:24 | Outpatient (REF) | payer MEDICARE, MEDICAID, SELFPAY ==
[2025-01-13 14:09] LABS: Anion Gap 11 (12-20); Blood Urea Nitrogen 21 mg/dL (9-16); Carbon Dioxide 30 mmol/L (22-29); Chloride 108 mmol/L (96-108); Estimated Glomerular Filt Rate 39; Potassium 4.4 mmol/L (3.3-5.1); Sodium 145 mmol/L (135-145)
== END 2025-01-13 10:25 | disposition home or self-care (01) ==
LOC: HO.HKASLDS 10:24
PROVIDERS: PCP Internal Medicine; Visit Provider Internal Medicine Nephrology
DX: I15.0 Renovascular hypertension (principal); N18.31 Chronic kidney disease, stage 3a
CPT/HCPCS: 36415; 80051; 82565; 84520

== ENCOUNTER 2025-01-20 14:29 | Outpatient (AMB) | payer MEDICARE, MEDICAID, SELFPAY ==
--- NOTE | 2025-01-20 14:38 | HO.NEPHOV_ITS ---
Vital Signs 01/20/25 14:40 Height 5 ft 4 in Weight 168 lb 4 oz BMI 28.9 BP 102/70 Blood Pressure Location Lt brachial Position Sitting Intake Visit Reasons: 6mon follow-up w/labs-LVM Crime Scene Technician Required: No Accompanied by: Daughter Allergies No Known Allergies Allergy (Verified 01/20/25 14:40) HPI Comments Details: Sally was seen in follow up for her chronic kidney disease and hypertension. She has diabetes. Her blood sugar is very fair. She is known to have iliac artery aneurysm. She denies any coronary artery disease, CVA, carotid stenosis, congestive heart failure, peripheral arterial symptoms. She is on angiotensin receptor dione. She denies any orthostatic symptoms. She has no history of hematuria or nephrolithiasis. She does not take any excessive nonsteroidal anti-inflammatories. She has been on PPI for a long time. She denies any epistaxis, recurrent sinusitis, hemoptysis, pedal edema. She maintains good hydration. 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 with negative chest x-ray Gastroesophageal reflux disease without esophagitis Hypercholesteremia Essential (primary) hypertension Sensorineural hearing loss Surgical History History of hysterectomy Family History Sister Cancer Diabetes Social History Alcohol intake: never Patient Tobacco Use Status: Never used Tobacco Review of Systems Const All systems reviewed & are unremarkable except as noted in HPI and below Physical Exam Const General: comfortable and no acute distress Orientation/consciousness: patient oriented x3 HEENT Head: Yes normocephalic Mouth: Normal oral and palatal mucosa present Eyes EOM: EOMs intact bilaterally Neck Neck: Yes supple Resp Auscultation: clear to auscultation bilaterally Cardio Jugular venous distension: no JVD Rate: regular rate GI Palpation (GI): Soft to palpation Auscultation: normal bowel sounds General: Yes no CVA tenderness Back/Spine/Pelvis Back: no CVA tenderness Skin General skin exam: no rashes or lesions noted Neuro General: patient oriented x3 and moves all extremities Extrem General: Yes no pedal edema Results Reviewed Nephrology Results: Sodium, (135-145) 145 mmol/L 01/13/25 Potassium, (3.3-5.1) 4.4 mmol/L 01/13/25 Chloride, (96-108) 108 mmol/L 01/13/25 Carbon Dioxide, (22-29) 30 mmol/L H 01/13/25 BUN, (9-16) 21 mg/dL H 01/13/25 Creatinine, (0.5-1.4) 1.33 mg/dL 01/13/25 Assessment & Plan Assessment & Plan (1) CKD (chronic kidney disease) stage 3, GFR 30-59 ml/min: Code(s): N18.30 - Chronic kidney disease, stage 3 unspecified Category: Medical Qualifiers: Chronic kidney disease stage 3 subtype: stage 3a (GFR 45-59) Qualified Code(s): N18.31 - Chronic kidney disease, stage 3a (2) Hypertension: Code(s): I10 - Essential (primary) hypertension Category: Medical Qualifiers: Hypertension type: renovascular hypertension Qualified Code(s): I15.0 - Renovascular hypertension Plan Sally has CKD most likely due to vascular disease. She has history of iliac artery aneurysm. She has no history of retinopathy or proteinuria. She is on angiotensin receptor dione. Her blood pressure is currently well controlled on losartan, metoprolol and diltiazem. Doppler of her renal arteries did not show any significant SONY. Her blood sugars are fair. Her volume status is optimal. She avoids nonsteroidal anti-inflammatory medications. She is on statins. Her renal function is stable. I did not make any medication changes to day . We can consider switching her from Actos to Jardiance given her CKD. Follow-up appointment given. Orders: Orders 2 Electrolytes 6 Months I15.0 - Renovascular hypertension, N18.31 - Chronic kidney disease, stage 3a Blood Urea Nitrogen 6 Months I15.0 - Renovascular hypertension, N18.31 - Chronic kidney disease, stage 3a Creatinine 6 Months I15.0 - Renovascular hypertension, N18.31 - Chronic kidney disease, stage 3a Coding Level of Care Code Est Pt Level 4 (08571) Diagnoses Stage 3a chronic kidney disease N18.31 Chronic kidney disease stage 3 subtype: stage 3a (GFR 45-59) Renovascular hypertension I15.0 Hypertension type: renovascular hypertension
[2025-01-20 14:40] VITALS: BP 102/70; BMI 28.9
--- OUTSIDE RECORDS SUMMARY | 2025-01-20 18:22 | XMS_ITS | Clinical Summary ---
Author Organization [facility] Address [address] [place] [address] Phone Care Team Providers Care Plumber Helper Name Role Phone Nasim Ann MD Primary Care Provider [phone] Allergies No known active allergies Medications No known medications Encounters Date Type Department Care Team Description 11/14/2024 Telephone Gastroenterology - [place] [address] [facility] [address] [facility] [address] [place] [address] Praveena Orellana MD 11/04/2024 10:10 AM EDT - 11/04/2024 1:52 PM EDT Emergency [facility] Emergency [address] [place] [address] Ro Olivier MD Chest pain at rest (Primary Dx); Generalized abdominal pain Discharge Disposition: Home or Self Care from Last 3 Months Immunizations Immunization Administration Dates Next Due Moderna SARS-CoV-2 COVID-19, [...] localization excisional biopsy - Dr Shaista Reinoso 2011 Hypertrophic obstructive cardiomyopathy (CMS/HCC V24, CMS/HCC V28) 06/02/2016 DX:Hypertrophic obstructive cardiomyopathy (HCC); COMMENT: ECHO 11/09/11 [employer] Supervisor - Dr Cerrato Joint pain in the [...] Sign Reading Time Taken Comments Blood Pressure 150/71 11/04/2024 10:54 AM EDT Pulse 42 11/04/2024 10:54 AM EDT Temperature 36.6 C (97.8 F) 11/04/2024 10:54 AM EDT Respiratory Rate 20 11/04/2024 10:54 AM EDT Oxygen Saturation 99% 11/04/2024 10:54 AM EDT Inhaled Oxygen Concentration - - Weight 74.8 kg (165 lb) 11/04/2024 7:59 AM EDT Height 160 cm (5' 3 ) 11/04/2024 7:59 AM EDT Body Mass Index 29.23 11/04/2024 7:59 AM EDT Plan of Treatment Upcoming Encounters Date Type Department Care Team (Late st Contact Info) Description 03/30/2025 10:50 AM EST Consult Gastroenterology - [address] [facility] [address] [place] [id number] Kezia Watts PA [address] [facility] [address] [place] [address] Health Maintenance Due Date Last Done Comments Diabetes: Annual Foot Exam 1962 Diabetes: Annual Retina Eye Exam 1962 Pneumococcal Vaccine: 50+ Years (1 of 1 - PCV) 2002 Falls Risk Assessment 01/25/2022 Medicare Annual Wellness Visit 01/25/2022 Osteoporosis Screening (Bone Density Screening) 01/25/2022 Social Influencers of Health Screening 01/25/2022 Colorectal Cancer Screening: Stool Based Tests (FOBT/FIT) 08/30/2023 08/29/2022 Depression Screening 02/27/2024 DTaP,Tdap,and Td Vaccines (2 - Td or Tdap) 08/20/2024 08/20/2014 COVID-19 Vaccine ( - 2024- season) 2024 02/09/2021, 05/08/2020, 04/10/2020 Influenza Vaccine (#1) 2024 , 02/01/2022, 03/08/2017, Additional history exists Diabetes: Annual Urine Albumin-Creatinine Ratio (uACR) 11/04/2024 09/06/2023, 05/22/2022 Diabetes: Blood Sugar Control Test (HGBA1C) 06/12/2025 12/12/2024, 07/23/2024, 04/17/2024, Additional history exists Diabetes: Annual GFR (Glomerular Filtration Rate) 11/04/2025 11/04/2024, 09/06/2023, 05/22/2022 Hypertension/CHF/CAD Annual BMP Blood Test 11/04/2025 11/04/2024, 09/06/2023, 05/22/2022 Breast Cancer Screening 11/17/2026 11/17/2024 RSV Immunization Adult Patients (1 - 1-dose 75+ series) 09/21/2027 Cholesterol Screening (Lipid Panel) 12/12/2029 12/12/2024, 12/12/2024, 09/06/2023, Additional history exists Hepatitis C Screening Completed 10/03/2018, 019 Zoster Vaccines Completed 06/07/2023, 08/23/2022 HIB Vaccines Aged Out No longer eligi [...] 20 months Aged Out No longer eligible based on patient's age to complete this topic Varicella Vaccines Aged Out No longer eligible based on patient's age to complete this topic Procedures Procedure Name Priority Date/Time Associated Diagnosis Comments ECG ANNOTATED 11/05/2024 CT ANGIO CHEST WO AND/OR W CONTRAST STAT 11/04/2024 12:05 PM EDT Chest pain at rest CT ABDOMEN PELVIS W CONTRAST STAT 11/04/2024 12:05 PM EDT TROPONIN I HIGH SENSITIVITY Timed 11/04/2024 11:18 AM EDT ECG 12-LEAD Routine 11/04/2024 11:10 AM EDT ECG 12-LEAD STAT 11/04/2024 9:00 AM EDT CBC WITH AUTO DIFFERENTIAL STAT 11/04/2024 8:54 AM EDT CBC AND DIFFERENTIAL STAT 11/04/2024 8:54 AM EDT TROPONIN I HIGH SENSITIVITY Timed 11/04/2024 8:54 AM EDT MAGNESIUM STAT 11/04/2024 8:54 AM EDT LIPASE STAT 11/04/2024 8:54 AM EDT COMPREHENSIVE METABOLIC PANEL STAT 11/04/2024 8:54 AM EDT from Last 3 Months Results * ECG-Annotated (11/05/2024) us Provider Onbase MD ECG ORDERABLES Final Result * CT Abdomen Pelvis w Contrast (11/04/2024 12:05 PM EDT) Anatomical Region Laterality Modality Body Computed Tomogra phy 11/04/2024 12:1 9 PM EDT Impressions 11/04/2024 12:57 PM EDT No acute findings. Incidental findings as above. -------- FINAL REPORT -------- Dictated By: Carleen Valdez Dictated Date: 11/04/2024 12:19 ET Assigned Physician: Carleen Valdez Reviewed and Electronically Signed By: Carleen Valdez Signed Date: 11/04/2024 12:57 ET Workstation ID: [id number] Transcribed By: Self Edit Transcribed Date: 11/04/2024 12:34 ET Narrative 11/04/2024 12:57 PM EDT PROCEDURE: CT ANGIO CHEST, CT abdomen and pelvis with contrast INDICATION: Chest pain, nonspecific CP, right clavicle enlargening? HOCM, MARCELO COMPARISON: None. TECHNIQUE: CT pulmonary angiogram and CT of the abdomen and pelvis performed following uneventful IV administration of ISOVUE contrast material with bolus timing technique from the thoracic inlet through the lung bases. 3-D multiplanar reformations were obtained by the technologist on an independent workstation. [employer] VCT dose reduction utilizing iterative reconstruction. Total exam DLP 975 (mGy-cm) FINDINGS: Pulmonary arteries are enlarged suggestive of elevated pulmonary pressures. There is no acute pulmonary embolism present. Cardiomegaly with coronary artery calcifications. 4.1 cm ascending aortic aneurysm. There is no evidence for mediastinal or hilar lymphadenopathy. No concerning opacity. Few scattered granulomas. There are no pleural effusions. HEPATOBILIARY: No focal liver lesions. No cholelithiasis or biliary duct dilatation. SPLEEN: No focal lesion. PANCREAS: No focal mass or ductal dilatation. ADRENALS: No nodules. KIDNEYS/URETERS: No hydronephrosis, stones, or solid mass. Multiple phleboliths along the retroperitoneum and within the pelvis. PELVIC ORGANS/BLADDER: Hysterectomy. PERITONEUM / RETROPERITONEUM: No ascites or free air. Few prominent retroperitoneal nodes. VESSELS: Scattered atherosclerotic calcifications throughout the aorta and its major branches. Left common iliac aneurysm measuring 1.9 cm. 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 GI TRACT: There is mild fecal loading throughout the colon. No acute infectious inflammatory process. Normal appendix. BONES AND SOFT TISSUES: Scattered degenerative changes seen throughout the bones. Particularly there is asymmetric significant degenerative changes at the right sternomanubrial joint with adjacent soft tissue prominence. No evidence for osteomyelitis or suspicious lesion. Soft tissues are unremarkable. Procedure Note Carleen Valdez MD - 11/04/2024 PROCEDURE: CT ANGIO CHEST, CT abdomen and pelvis with contrast INDICATION: Chest pain, nonspecific CP, right clavicle enlargening? HOCM, MARCELO COMPARISON: None. TECHNIQUE: CT pulmonary angiogram and CT of the abdomen and pelvisperformed following uneventful IV administration of ISOVUE contrastmaterial with bolus timing technique from the thoracic inlet through thelung bases. 3-D multiplanar reformations were obtained by the technologist on anindependent workstation. [employer] VCT dose reduction utilizing iterative reconstruction. Total exam DLP 975 (mGy-cm) FINDINGS: Pulmonary arteries are enlarged suggestive of elevated pulmonarypressures. There is no acute pulmonary embolism present. Cardiomegaly with coronary artery calcifications. 4.1 cm ascending aorticaneurysm. There is no evidence for mediastinal or hilar lymphadenopathy. No concerning opacity. Few scattered granulomas. There are no pleural effusions. HEPATOBILIARY: No focal liver lesions. No cholelithiasis or biliary ductdilatation. SPLEEN: No focal lesion. PANCREAS: No focal mass or ductal dilatation. ADRENALS: No nodules. KIDNEYS/URETERS: No hydronephrosis, stones, or solid mass. Multiplephleboliths along the retroperitoneum and within the pelvis. PELVIC ORGANS/BLADDER: Hysterectomy. PERITONEUM / RETROPERITONEUM: No ascites or free air. Few prominentretroperitoneal nodes. VESSELS: Scattered atherosclerotic calcifications throughout the aorta andits major branches. Left common iliac aneurysm measuring 1.9 cm.Bilateral hypogastric aneurysms measuring approximately 2.1 cm. GI TRACT: There is mild fecal loading throughout the colon. No acuteinfectious inflammatory process. Normal appendix. BONES AND SOFT TISSUES: Scattered degenerative changes seen throughout thebones. Particularly there is asymmetric significant degenerative changesat the right sternomanubrial joint with adjacent soft tissue prominence.No evidence for osteomyelitis or suspicious lesion. Soft tissues areunremarkable. IMPRESSION: No acute findings. Incidental findings as above. -------- FINAL REPORT -------- Dictated By: Carleen Valdez Dictated Date: 11/04/2024 12:19 ET Assigned Physician: Carleen Valdez Reviewed and Electronically Signed By: Carleen Valdez Signed Date: 11/04/2024 12:57 ET Workstation ID: [id number] Transcribed By: Self Edit Transcribed Date: 11/04/2024 12:34 ET Ro Olivier MD [facility] CT PROCEDURES Final Result * CT Angio Chest wo and/or w Contrast (11/04/2024 12:05 PM EDT) Anatomical Region Laterality Modality Body Computed Tomogra phy 11/04/2024 12:1 9 PM EDT Impressions 11/04/2024 12:57 PM EDT No acute findings. Incidental findings as above. -------- FINAL REPORT -------- Dictated By: Carleen Valdez Dictated Date: 11/04/2024 12:19 ET Assigned Physician: Carleen Valdez Reviewed and Electronically Signed By: Carleen Valdez Signed Date: 11/04/2024 12:57 ET Workstation ID: [id number] Transcribed By: Self Edit Transcribed Date: 11/04/2024 12:34 ET Narrative 11/04/2024 12:57 PM EDT PROCEDURE: CT ANGIO CHEST, CT abdomen and pelvis with contrast INDICATION: Chest pain, nonspecific CP, right clavicle enlargening? HOCM, MARCELO COMPARISON: None. TECHNIQUE: CT pulmonary angiogram and CT of the abdomen and pelvis performed following uneventful IV administration of ISOVUE contrast material with bolus timing technique from the thoracic inlet through the lung bases. 3-D multiplanar reformations were obtained by the technologist on an independent workstation. [employer] VCT dose reduction utilizing iterative reconstruction. Total exam DLP 975 (mGy-cm) FINDINGS: Pulmonary arteries are enlarged suggestive of elevated pulmonary pressures. There is no acute pulmonary embolism present. Cardiomegaly with coronary artery calcifications. 4.1 cm ascending aortic aneurysm. There is no evidence for mediastinal or hilar lymphadenopathy. No concerning opacity. Few scattered granulomas. There are no pleural effusions. HEPATOBILIARY: No focal liver lesions. No cholelithiasis or biliary duct dilatation. SPLEEN: No focal lesion. PANCREAS: No focal mass or ductal dilatation. ADRENALS: No nodules. KIDNEYS/URETERS: No hydronephrosis, stones, or solid mass. Multiple phleboliths along the retroperitoneum and within the pelvis. PELVIC ORGANS/BLADDER: Hysterectomy. PERITONEUM / RETROPERITONEUM: No ascites or free air. Few prominent retroperitoneal nodes. VESSELS: Scattered atherosclerotic calcifications throughout the aorta and its major branches. Left common iliac aneurysm measuring 1.9 cm. 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 GI TRACT: There is mild fecal loading throughout the colon. No acute infectious inflammatory process. Normal appendix. BONES AND SOFT TISSUES: Scattered degenerative changes seen throughout the bones. Particularly there is asymmetric significant degenerative changes at the right sternomanubrial joint with adjacent soft tissue prominence. No evidence for osteomyelitis or suspicious lesion. Soft tissues are unremarkable. Procedure Note Carleen Valdez MD - 11/04/2024 PROCEDURE: CT ANGIO CHEST, CT abdomen and pelvis with contrast INDICATION: Chest pain, nonspecific CP, right clavicle enlargening? HOCM, MARCELO COMPARISON: None. TECHNIQUE: CT pulmonary angiogram and CT of the abdomen and pelvisperformed following uneventful IV administration of ISOVUE contrastmaterial with bolus timing technique from the thoracic inlet through thelung bases. 3-D multiplanar reformations were obtained by the technologist on anindependent workstation. [employer] VCT dose reduction utilizing iterative reconstruction. Total exam DLP 975 (mGy-cm) FINDINGS: Pulmonary arteries are enlarged suggestive of elevated pulmonarypressures. There is no acute pulmonary embolism present. Cardiomegaly with coronary artery calcifications. 4.1 cm ascending aorticaneurysm. There is no evidence for mediastinal or hilar lymphadenopathy. No concerning opacity. Few scattered granulomas. There are no pleural effusions. HEPATOBILIARY: No focal liver lesions. No cholelithiasis or biliary ductdilatation. SPLEEN: No focal lesion. PANCREAS: No focal mass or ductal dilatation. ADRENALS: No nodules. KIDNEYS/URETERS: No hydronephrosis, stones, or solid mass. Multiplephleboliths along the retroperitoneum and within the pelvis. PELVIC ORGANS/BLADDER: Hysterectomy. PERITONEUM / RETROPERITONEUM: No ascites or free air. Few prominentretroperitoneal nodes. VESSELS: Scattered atherosclerotic calcifications throughout the aorta andits major branches. Left common iliac aneurysm measuring 1.9 cm.Bilateral hypogastric aneurysms measuring approximately 2.1 cm. GI TRACT: There is mild fecal loading throughout the colon. No acuteinfectious inflammatory process. Normal appendix. BONES AND SOFT TISSUES: Scattered degenerative changes seen throughout thebones. Particularly there is asymmetric significant degenerative changesat the right sternomanubrial joint with adjacent soft tissue prominence.No evidence for osteomyelitis or suspicious lesion. Soft tissues areunremarkable. IMPRESSION: No acute findings. Incidental findings as above. -------- FINAL REPORT -------- Dictated By: Carleen Valdez Dictated Date: 11/04/2024 12:19 ET Assigned Physician: Carleen Valdez Reviewed and Electronically Signed By: Carleen Valdez Signed Date: 11/04/2024 12:57 ET Workstation ID: [id number] Transcribed By: Self Edit Transcribed Date: 11/04/2024 12:34 ET us Ro Olivier MD [facility] CT PROCEDURES Final Result * (ABNORMAL) Troponin I high sensitivity (11/04/2024 11:18 AM EDT) Only the most recent of2 resultswithin the time period is included. High Sensitivity Troponin I 116(HH) <=54 ng/L LAB CHEMISTRY METHOD 11/04/2024 12:11 PM EDT [facility] Blood Venous blood specimen / Unknown Venipuncture / Unknown 11/04/2024 11:18 AM EDT 11/04/2024 11:36 AM EDT Narrative [facility] - 11/04/2024 12:11 PM EDT High levels of biotin in samples may falsely decrease hsTroponin values. Use caution when interpreting hsTroponin results in patients taking biotin who exhibit renal impairment (eGFR <60) or in patients taking more than 20 mg/day of biotin. Nikki RODGERS LAB BLOOD ORDERABLES Fin al Result [facility] [address] [place] [address], [place] [phone] * ECG 12 lead (11/04/2024 11:10 AM EDT) Only the most recent of2 resultswithin the time period is included. Ventricular Rate ECG 43 BPM GEMUSE Atrial Rate 43 BPM GEMUSE P-R Interval 208 ms GEMUSE QRS Duration 94 ms GEMUSE Q-T Interval 500 ms GEMUSE QTc 422 ms GEMUSE P Wave [place] 31 degrees GEMUSE R [place] -2 degrees GEMUSE T [place] 54 degrees GEMUSE ECG Interpretation Marked sinus bradycardia Voltage criteria for left ventricular hypertrophy Nonspecific T wave abnormality Abnormal ECG When compared with ECG of 04-NOV-2024 09:00, (unconfirmed) No significant change was found Confirmed by Param SCHMID YUFENG ([id number]) on 11/04/2024 6:15:31 PM GEMUSE 11/04/2024 11:1 0 AM EDT 11/04/2024 6:15 PM EDT Ro Olivier MD ECG ORDERABLES Final Result GEMUSE * (ABNORMAL) CBC auto differential (11/04/2024 8:54 AM EDT) WBC 4.0(L) 4.8 - 10.8 K/mcL LAB HEMETOLOGY METHOD 11/04/2024 9:32 AM [facility] RBC 4.50 3.80 - 4.80 M/mcL LAB HEMETOLOGY METHOD 11/04/2024 9:32 AM [facility] Hemoglobin 12.0 11.5 - 16.0 g/dL LAB HEMETOLOGY METHOD 11/04/2024 9:32 AM [facility] Hematocrit 38.6 35.0 - 47.0 % LAB HEMETOLOGY METHOD 11/04/2024 9:32 AM [facility] MCV 86.5 79.0 - 98.0 FL LAB HEMETOLOGY METHOD 11/04/2024 9:32 AM [facility] MCH 26.9(L) 27.0 - 32.0 pcg LAB HEMETOLOGY METHOD 11/04/2024 9:32 AM [facility] MCHC 31.1(L) 32.0 - 37.0 g/dL LAB HEMETOLOGY METHOD 11/04/2024 9:32 AM [facility] RDW 16.3(H) 11.0 - 15.0 % LAB HEMETOLOGY METHOD 11/04/2024 9:32 AM [facility] Platelets 137 130 - 400 K/mcL LAB HEMETOLOGY METHOD 11/04/2024 9:32 AM [facility] MPV 10.5 7.0 - 11.0 FL LAB HEMETOLOGY METHOD 11/04/2024 9:32 AM [facility] NRBC 0.0 <1.0 % LAB HEMETOLOGY METHOD 11/04/2024 9:32 AM [facility] NRBC Absolute 0.00 <0.10 K/mcL LAB HEMETOLOGY METHOD 11/04/2024 9:32 AM [facility] Neutrophils Relative 48.2 % LAB HEMETOLOGY METHOD 11/04/2024 9:32 AM [facility] Lymphocytes Relative 36.7 % LAB HEMETOLOGY METHOD 11/04/2024 9:32 AM [facility] Monocytes Relative 12.0 % LAB HEMETOLOGY METHOD 11/04/2024 9:32 AM [facility] Eosinophils Relative 2.7 % LAB HEMETOLOGY METHOD 11/04/2024 9:32 AM [facility] Basophils Relative 0.2 % LAB HEMETOLOGY METHOD 11/04/2024 9:32 AM [facility] Immature Granulocytes Relative 0.2 % LAB HEMETOLOGY METHOD 11/04/2024 9:32 AM [facility] Neutrophils Absolute 1.93 1.50 - 7.00 K/mcL LAB HEMETOLOGY METHOD 11/04/2024 9:32 AM [facility] Lymphocytes Absolute 1.47 1.00 - 5.00 K/mcL LAB HEMETOLOGY METHOD 11/04/2024 9:32 AM [facility] Monocytes Absolute 0.48 0.20 - 1.00 K/mcL LAB HEMETOLOGY METHOD 11/04/2024 9:32 AM [facility] Eosinophils Absolute 0.11 0.00 - 0.50 K/mcL LAB HEMETOLOGY METHOD 11/04/2024 9:32 AM [facility] Basophils Absolute 0.01 0.00 - 0.20 K/mcL LAB HEMETOLOGY METHOD 11/04/2024 9:32 AM [facility] Immature Granulocytes Absolute 0.01 0.00 - 0.03 K/mcL LAB HEMETOLOGY METHOD 11/04/2024 9:32 AM [facility] Blood Venous blood specimen / Unknown Venipuncture / Unknown 11/04/2024 8:54 AM EDT 11/04/2024 9:23 AM EDT us Nikki RODGERS LAB BLOOD ORDERABLES Fin al Result Performing Organization Address [facility]/ZIP Co de Phone Number [facility] [address] [place] [address], [place] [phone] * Magnesium (11/04/2024 8:54 AM EDT) Pathologist [facility] Magnesium 2.3 1.9 - 2.6 mg/dL LAB CHEMISTRY METHOD 11/04/2024 9:48 AM EDT [facility] Blood Venous blood specimen / Unknown Venipuncture / Unknown 11/04/2024 8:54 AM EDT 11/04/2024 9:23 AM EDT us Nikki RODGERS LAB BLOOD ORDERABLES Fin al Result Performing Organization Address [facility] Co de Phone Number [facility] [address] [place] [address], [place] [phone] * Lipase (11/04/2024 8:54 AM EDT) [facility] Lipase 34 13 - 75 unit/L LAB CHEMISTRY METHOD 11/04/2024 9:48 AM EDT [facility] Blood Venous blood specimen / Unknown Venipuncture / Unknown 11/04/2024 8:54 AM EDT 11/04/2024 9:23 AM EDT us Nikki RODGERS LAB BLOOD ORDERABLES Fin al Result Performing Organization Address City/[facility]/ZIP Co de Phone Number [facility] [address] [place] [address], [place] [phone] * (ABNORMAL) Comprehensive metabolic panel (11/04/2024 8:54 AM EDT) Pathologist [facility] Sodium 142 133 - 145 mmol/L LAB CHEMISTRY METHOD 11/04/2024 10:08 AM [facility] Potassium 4.7 3.5 - 5.5 mmol/L LAB CHEMISTRY METHOD 11/04/2024 10:08 AM [facility] Chloride 108 96 - 110 mmol/L LAB CHEMISTRY METHOD 11/04/2024 10:08 AM [facility] CO2 31 21 - 32 mmol/L LAB CHEMISTRY METHOD 11/04/2024 10:08 AM [facility] Anion Gap 3 3 - 11 LAB CHEMISTRY METHOD 11/04/2024 10:08 AM [facility] Glucose 125(H) 70 - 100 mg/dL LAB CHEMISTRY METHOD 11/04/2024 10:08 AM [facility] BUN 22 5 - 25 mg/dL LAB CHEMISTRY METHOD 11/04/2024 10:08 AM [facility] Creatinine 1.51(H) 0.50 - 1.10 mg/dL LAB CHEMISTRY METHOD 11/04/2024 10:08 AM [facility] eGFR 37(L) >=60 mL/min/1. 73m2 LAB CHEMISTRY METHOD 11/04/2024 10:08 AM [facility] Comment:Calculation based on the Chronic Kidney Disease Epidemiology Collaboration (CKD-EPI) equation refit without adjustment for race. BUN/Creatinine Ratio 14.6 LAB CHEMISTRY METHOD 11/04/2024 10:08 AM [facility] Calcium 9.9 8.5 - 10.5 mg/dL LAB CHEMISTRY METHOD 11/04/2024 10:08 AM [facility] AST (SGOT) 24 10 - 42 unit/L LAB CHEMISTRY METHOD 11/04/2024 10:08 AM [facility] ALT (SGPT) 31 10 - 60 unit/L LAB CHEMISTRY METHOD 11/04/2024 10:08 AM [facility] Alkaline Phosphatase 118 42 - 121 unit/L LAB CHEMISTRY METHOD 11/04/2024 10:08 AM EDT [facility] Total Protein 7.3 6.0 - 8.0 g/dL LAB CHEMISTRY METHOD 11/04/2024 10:08 AM EDT [facility] Albumin 3.7 3.2 - 5.0 g/dL LAB CHEMISTRY METHOD 11/04/2024 10:08 AM EDT [facility] Total Bilirubin 0.6 0.0 - 1.4 mg/dL LAB CHEMISTRY METHOD 11/04/2024 10:08 AM EDT [facility] Blood Venous blood specimen / Unknown Venipuncture / Unknown 11/04/2024 8:54 AM EDT 11/04/2024 9:23 AM EDT Nikki RODGERS LAB BLOOD ORDERABLES Fin al Result [facility] [address] [place] [address], [place] [phone] from Last 3 Months Insurance MEDICARE MEDICAID - [place] Care Teams Plumber Helper Relationship Specialty Start Date End Date Nasim Ann MD [address] [place] [address] PCP - General 01/24/22
== END 2025-01-20 14:49 | disposition home or self-care (01) ==
LOC: HO.HKAS 14:29
PROVIDERS: PCP Internal Medicine; Visit Provider Internal Medicine Nephrology
DX: N18.31 Chronic kidney disease, stage 3a (principal); I15.0 Renovascular hypertension
CPT/HCPCS: 99214

== ENCOUNTER → 2025-01-20 14:29 | Outpatient (BNVA) | payer MEDICARE, SELFPAY | PROVIDERS: PCP Internal Medicine; Visit Provider Internal Medicine Nephrology | DX: N18.31 Chronic kidney disease, stage 3a (principal); I15.0 Renovascular hypertension; I72.3 Aneurysm of iliac artery | CPT/HCPCS: 99212 ==